=== PATIENT | male | born 1935 ===

== ENCOUNTER → 2016-06-11 | Outpatient (CLI) | payer MEDICARE, OTHER ==
[2016-06-11 14:11] LABS: BASOPHIL # 0.1 K/uL (0.0-0.2); EOSINOPHIL % 0.5 %; HEMATOCRIT 42.8 % (37.0-53.0); HEMOGLOBIN 13.8 g/dL (11.0-16.0); IMMATURE GRANULOCYTE % 0.3 %; LYMPHOCYTE # 1.9 K/uL (0.8-4.0); LYMPHOCYTE % 30.3 %; MCH 27.7 pg (27.0-34.0); MCHC 32.2 gm/dL (32.0-36.5); MCV 85.9 fl (83.0-98.0); MONOCYTE # 0.6 K/uL (0.0-1.0); MONOCYTE % 9.8 %; MPV 8.7 fl (9.4-12.4); NEUTROPHIL # (ANC) 3.7 K/uL (1.4-9.0); NEUTROPHIL % 58.1 %; NRBC % 0 /100WBC (0-0.00); PLATELET COUNT 197 K/uL (150-450); RBC 4.98 M/uL (3.50-5.50); RDW-CV 13.3 % (11.9-14.6); WBC 6.3 K/uL (4.0-11.0)
[2016-06-11 14:27] LABS: ALBUMIN 3.6 gm/dL (3.5-5.0); ANION GAP 13.7 (10.0-19.0); CALCIUM 8.8 mg/dL (8.5-10.5); CREATININE 1.2 mg/dL (0.6-1.3); PHOSPHORUS 2.9 mg/dL (2.5-4.9); POTASSIUM 4.7 mMol/L (3.7-5.1)
== END | disposition disaster alternative care site (69) ==
LOC: LCNC 13:34
PROVIDERS: Internal Medicine Interventional Cardiology
DX: R00.2 Palpitations (principal)

== ENCOUNTER → 2016-06-18 | Outpatient (CLI) | payer MEDICARE, OTHER ==
[2016-06-18 09:16] LABS: ALBUMIN 3.8 gm/dL (3.5-5.0); TOTAL BILIRUBIN 0.8 mg/dL (0.0-1.5); TOTAL PROTEIN 7.1 g/dL (6.0-8.4)
== END ==
LOC: LCNC 08:52
PROVIDERS: Internal Medicine Interventional Cardiology
DX: E78.5 Hyperlipidemia, unspecified (principal)